=== PATIENT | male | born 1950 | race Caucasian/White ===

== ENCOUNTER 2016-06-26 07:52 | Inpatient (IN) | payer MEDICARE ==
--- NOTE | 2016-06-23 09:04 | HP ---
DATE OF CLINIC: 06/21/2016 WALLACE BAILON : 1950 PLANNED PROCEDURE: Revision of Patella s/p Right Total Knee Arthroplasty DATE OF PROCEDURE: June 26, 2016 SURGEON: Suresh Varghese M.D. PCP: Dr. Raimundo Red HISTORY OF PRESENT ILLNESS Wallace Bailon is a 65 year old male. * Medication list reviewed with patient allergy list reviewed with patient. * Has not tried NSAIDS * Has not tried Physical Therapy * Has not tried Injections Mr. Bailon is in today with his pre-operatively for his upcoming right knee patellar resurfacing and poly exchange on 06/26/16. Patient presents in good spirits and is ready to proceed. He states he's had recent sinus congestion without a fever or other constitutional symptoms. No other change in health. No prior surgical complications. His recent consult with Dr. Varghese follows: Patient is a 65-year-old male who I followed for bilateral anterior knee pain, right worse than left. He is a previous patient of Dr. Castillo about 5 years s/p total knee arthroplasties. He has struggled with persistent anterior pain that is worse with descending stairs, loaded flexion, etc. He has no rest pain, no radicular symptoms. He has recently had some problems with the right hip for which he saw Scott. He has moderate degenerative disease. He has had a recent intraarticular corticosteroid injection by Dr. Bowers about 8 weeks ago. Today he would like to review potential treatment algorithms with respect to his chronic anterior right knee pain. He has no recent illnesses. Comorbidities include hypertension. CURRENT MEDICATION * Adult Aspirin EC Low Strength 81 MG Tablet Delayed Release 1 once a day 0 days, 0 refills * AmLODIPine Besylate 10 MG Tablet once a day 0 days, 0 refills * Enalapril-Hydrochlorothiazide 10-25 MG Tablet once a day 0 days, 0 refills * Multi-Vitamin Tablet once a day 0 days, 0 refills * Pravastatin Sodium 40 MG Tablet once a day 0 days, 0 refills * Tums 500 MG Tablet Chewable as needed 0 days, 0 refills * Zetia 10 MG Tablet once a day 0 days, 0 refills PAST MEDICAL/SURGICAL HISTORY Reported: Medical: Arthritis, cancer, Reported numbness, Reported tingling, history of Arthritis in joints, and Hypertension. Surgical / Procedural: Surgical / procedural history Lt knee sx x2 Dr. Cho Rt knee sx Dr. Cho sinus sx x2 sinus surgery 1976 or 1977?, replacement of a knee Left knee replaced 01/10/2011, Right knee replaced 04/04/2011, Hernia repair 5, 1973, and Arthroscopy knee scope [id number]. Tests: Blood pressure was high. Surgical: * Hernia repair x2 SOCIAL HISTORY Behavioral: Never smoked. Smoking status: Never smoker. REVIEW OF SYSTEMS Systemic: No fever and no recent weight change. Head: Head symptoms mild sinus congestion. Cardiovascular: No cardiovascular symptoms. Pulmonary: No pulmonary symptoms. Gastrointestinal: No gastrointestinal symptoms. Psychological: No psychological symptoms. Skin: No skin lesions and no rash. PHYSICAL FINDINGS * Vitals taken 06/21/2016 11:24 am BP-Sitting R 131/74 mmHg 100 - 120/60 - 80 BP Cuff Size Regular Pulse Rate-Sitting 68 bpm 50 - 100 Temp-Oral 97.7 F 96 - 101 Height 72 in 64 - 74 Weight 238 lbs 123 - 215 Body Mass Index 32.3 kg/m2 Body Surface Area 2.29 m2 Pain Level 0 Ears, Nose, Throat: * ENT: normal. Lungs: * Clear to auscultation. Cardiovascular: Heart Rate and Rhythm: * Normal. Abdomen: * Normal. Neurological: Motor: * Dominant Hand = Right Hand. Patient is a well-developed, well-nourished male in no acute distress, normal-appearing mood and affect. He ambulates with a heel-to-toe gait, stiff-legged at startup on the right with slightly externally rotated. His pelvis is level. Inspection of the right knee shows a benign appearing scar. No focal swelling with no significant effusion. AROM: 0-105 degrees PROM: 0-115 degrees No periarticular tenderness although he does have discomfort with patellar compression. Patella tracks laterally. He has mild pain with manipulation. Good coronal plane alignment and joint play. NT in the proximal tibia. Calf is soft and NT. Distal neurovascular exam is grossly symmetric with the contralateral side. Pulses are palpable. He has limited IR, but not particularly uncomfortable. Exam of the left knee shows a well-healed incision. No focal swelling or significant effusion AROM: 0-115 degrees PROM: 0-125 degrees. No focal periarticular tenderness. Mild pain with patellar compression. No focal jointline tenderness. Good coronal plane alignment and joint play. Patella tracks laterally. Mild pain on manipulation. Calf is soft and NT. Distal neurovascular exam is grossly symmetric with the contralateral side. Gentle rotation of the hip is non-irritable. TESTS Imaging: X-Ray Knee: A complete knee x-ray with standing views was performed -of right knee. 3 views are reviewed. These demonstrate a cruciate retaining arthroplasty in reasonable position and alignment. No evidence of progressive osteolysis, loosening or wear when compared to previous films. He has a non-resurfaced patella and his patellofemoral articulation is consistent with chondral loss. ASSESSMENT * Localized primary osteoarthritis of the right knee patellofemoral post remote R TKA without resurfacing of the patella * Post operative care total knee replacement - right - 5 years post right TKA, anterior knee pain consistent with patellofemoral irritation/arthritis PREVIOUS TESTS * Test: CBC WITH DIFF Report Date: 06/15/2016 WBC 6.8 10*3/mL MCV 85.9 fL BASOPHIL 0.9 % RBC 5.95 10*6/uL NEUTROPHILS 63.7 % MCH 28.6 pg MCHC 33.3 g/dL RDW 13.0 % PLATELET COUNT 238 10*3/mL IMM NEUT % 0.1 % IMM NEUT # 0.0 10*3/mL MONOCYTES 8.5 % EOSINOPHIL 1.9 % HCT 51.1 % HGB 17.0 g/L LYMPHOCYTE 24.9 % ANC 4.4 10*3/mL * Test: URINALYSIS Report Date: 06/15/2016 GLUCOSE NEGATIVE PH,URINE 7.0 SPEC. GRAVITY 1.015 KETONE NEGATIVE NITRITE NEGATIVE BLOOD NEGATIVE BILIRUBIN NEGATIVE APPEARANCE CLEAR PROTEIN NEGATIVE COLOR YELLOW LEUK ESTERASE NEGATIVE UROBILINOGEN NORMAL * Test: COMPREHENSIVE METABOLIC PANEL Report Date: 06/15/2016 ALT/SGPT 19 U/L ALBUMIN 4.7 g/dL ALB/GLOB RATIO 1.9 BUN 18 mg/dL BUN/CREAT RATIO 16 CALCIUM 9.8 mg/dL GLUCOSE 103 mg/dL High CREATININE 1.1 mg/dL SODIUM 140 meq/L POTASSIUM 4.1 meq/L CHLORIDE 101 meq/L CARBON DIOXIDE 32 meq/L High ANION GAP 11 meq/L TOT PROTEIN 7.2 g/dL GLOBULIN 2.5 g/dL BILI,TOTAL 1.0 mg/dL AST/SGOT 17 U/L ALK PHOSPHATASE 57 U/L GFR 67 * Test: PROTHROMBIN TIME Report Date: 06/15/2016 PROTIME 10.2 s INR 0.97 * Test: PARTIAL THROMBOPLASTIN TIME Report Date: 06/15/2016 APTT 25.6 s * Test: MRSA SCREEN Report Date: 06/16/2016 MRSA SCREEN NEGATIVE * Test: MSSA SCREEN Report Date: 06/16/2016 MSSA SCREEN NEGATIVE FOR STAPHYLOCOCCUS AUREUS THERAPY * Patient fall risk screen negative. * Patient eligible for fall risk assessment. * Patient received fall risk assessment. PLAN * Pain in right knee Physical Therapy: [facility] * OTHER OxyCONTIN 10 MG T12A, 1 po q 12 hours-TO BE USED FOR AFTER SURGERY, 5 days, 0 refills OxyCONTIN 10 MG T12A, 1 po q 12 hours-TO BE USED FOR AFTER SURGERY, 10 days, 0 refills TraMADol HCl 50 MG TABS, 1 po q 6 hours prn pain-TO BE USED FOR AFTER SURGERY, 5 days, 0 refills OxyCODONE HCl 5 MG TABS, 1-2 po q 4 hours for break thru pain if needed-TO BE USED FOR AFTER SURGERY, 5 days, 0 refills Revision of patella s/p Right total knee arthroplasty. Discussed with patient in detail the limitations, expectations as well as risks and possible complications of surgery including, but not limited to wound problems or infection, neurovascular injury, continued knee pain or dysfunction including the possibility of prosthetic wear or failure over time that may require additional operative or non-operative treatment. Patient also realizes the perioperative risks including risks associated with anesthesia and would like to proceed. A full PAR conference was held, questions and concerns addressed and informed consent was obtained. Patient will be sent from my office for completion of the preoperative workup. CARE TEAM Raimundo Red MD Family Practice CC: Raimundo Red MD Family Practice [facility] RS/sg
[2016-06-26] MEDS ORDERED: LACTATED RINGERS 1,000 ML ONE ×2 (10:43→13:42)
[2016-06-26] MEDS ORDERED: IV START KIT ONE (10:44)
[2016-06-26] MEDS ORDERED: TRAMADOL HCL 50 MG TABLET ONE (11:15)
[2016-06-26] MEDS ORDERED: OXYCODONE HCL 10 MG TAB.SR PO ONE ×2 (11:15)
[2016-06-26] MEDS ORDERED: FAMOTIDINE 20 MG TABLET ONE (11:15)
[2016-06-26] MEDS ORDERED: GABAPENTIN 600 MG TABLET PO ONE (11:15)
[2016-06-26] MEDS ORDERED: CEFAZOLIN SODIUM 2 GRAM PREMIX 100 ML IV ONE (11:15)
[2016-06-26] MEDS ORDERED: FAMOTIDINE 20 MG TABLET PO ONE (11:15)
[2016-06-26] MEDS ORDERED: TRAMADOL HCL 50 MG TABLET PO ONE (11:15)
[2016-06-26] MEDS ORDERED: ONDANSETRON 4 MG/2ML 2 ML VIAL IV ONE (11:15)
[2016-06-26] MEDS ORDERED: CELECOXIB 200 MG CAPSULE PO ONE (11:15)
[2016-06-26] MEDS ORDERED: CLONIDINE HCL 0.1 MG/24 HR (7 DAY PATCH) TD SCH (11:15)
[2016-06-26] MEDS ORDERED: CEFAZOLIN SODIUM 2 GRAM PREMIX 100 ML IV PRN (11:15)
[2016-06-26] MEDS ORDERED: ONDANSETRON 4 MG/2ML 2 ML VIAL ONE (11:15)
[2016-06-26] MEDS ORDERED: GABAPENTIN 600 MG TABLET ONE (11:16)
[2016-06-26] MEDS ORDERED: CLONIDINE HCL 0.1 MG/24 HR (7 DAY PATCH) TD ONE (11:16)
[2016-06-26] MEDS ORDERED: CELECOXIB 200 MG CAPSULE ONE (11:16)
[2016-06-26] MEDS ORDERED: FENTANYL 250 MCG/5 ML AMP ONE (12:18)
[2016-06-26] MEDS ORDERED: MIDAZOLAM HCL 5 MG/5 ML VIAL ONE (12:19)
[2016-06-26] MEDS ORDERED: ROPIVACAINE 0.2% 20 ML VIAL ONE (12:28)
[2016-06-26] MEDS ORDERED: SPINAL PROCEDURAL TRAY 1 EACH ONE (12:28)
[2016-06-26] MEDS ORDERED: NERVE BLOCK PROCEDURAL TRAY 1 EACH ONE (12:28)
[2016-06-26] MEDS ORDERED: BUPIVACAINE 0.25% (MDV) 20 ML in SODIUM CHLORIDE 0.9% FLUSH 20 ML IF PRN (13:00)
[2016-06-26] MEDS ORDERED: TRANEXAMIC ACID 1,000 MG in SODIUM CHLORIDE 0.9% 100 ML IV PRN (13:00)
[2016-06-26] MEDS ORDERED: POLYMYXIN B SULFATE 500,000 UNITS, BACITRACIN 25,000 UNITS in SODIUM CHLORIDE 3 L IRRIG... IR PRN (13:00)
[2016-06-26] MEDS ORDERED: BUPIVACAINE 0.25% (MDV) 24 ML, MORPHINE SULFATE 8 MG, EPINEPHRINE 0.3 MG in SODIUM CHLO... IF PRN (13:00)
[2016-06-26] MEDS ORDERED: LIDOCAINE 2% (PRES FREE) 5 ML VIAL ONE (14:45)
[2016-06-26] MEDS ORDERED: PROPOFOL 40 ML IV ONE (14:45)
[2016-06-26] MEDS ORDERED: DEXAMETHASONE SOD PHOS 4 MG/1 ML VIAL ONE (14:45)
[2016-06-26] MEDS ORDERED: PROMETHAZINE HCL 25 MG/ML VIAL IM PRN (14:54)
[2016-06-26] MEDS ORDERED: ONDANSETRON 4 MG/2ML 2 ML VIAL IV PRN ×2 (14:54→17:52)
[2016-06-26] MEDS ORDERED: NALOXONE HCL 0.4 MG/ML VIAL IV PRN (14:54)
[2016-06-26] MEDS ORDERED: ON-Q PUMP/ROPIVACAINE 0.2% 450 ML in PREMIX BAG 1 EACH NB PRN ×2 (14:54→17:52)
[2016-06-26] MEDS ORDERED: ATROPINE SULFATE 0.4 MG/1 ML VIAL IV PRN (14:54)
[2016-06-26] MEDS ORDERED: FENTANYL 100 MCG/2 ML VIAL IV PRN (14:54)
[2016-06-26] MEDS ORDERED: HYDROMORPHONE HCL 1 MG/ML SYRINGE IV PRN (14:54)
[2016-06-26] MEDS ORDERED: LACTATED RINGERS 1,000 ML IV SCH (15:00)
[2016-06-26] MEDS ORDERED: PROPOFOL 20 ML IV ONE ×2 (15:21)
[2016-06-26] MEDS ORDERED: ON-Q PUMP/ROPIVACAINE 0.2% 450 ML ONE (16:49)
--- NOTE | 2016-06-26 17:16 | PCMBPN ---
Brief Post Op Note: Date of Procedure: 06/26/16 Preoperative Diagnosis: painful right TKA with PF DJD Postoperative Diagnosis: 1. [Same] Procedure: Revision arthroplasty right patella and polyethylene exchange Surgeon: Suresh Varghese MD Assist:Ivone (TUSHAR) Anesthesia: spinal/add block (Diane) Findings: patellar DJD Condition: stable to PAR Complications: none IV Fluids: 1200 mLs of LR Urine Output: 125 mLs Estimated Blood Loss: 30 mLs Tourniquet Time: 60 Specimens: [N/A] Implants: legion Drains: none
--- NOTE | 2016-06-26 17:41 | RAD ---
Exam: Two-view right knee COMPARISON: 03/22/2016, 10/06/2015 INDICATION: Postop. FINDINGS: AP and lateral views of the right knee were obtained. Skin azam are present medially. There has been interval placement of the patellar component. Postsurgical changes of right knee arthroplasty are otherwise similar. No pericomponent fracture is identified. Alignment is normal. No pericomponent lucency is visualized. IMPRESSION: Expected postoperative appearance following placement of the patellar component of the right knee arthroplasty.
[2016-06-26] MEDS ORDERED: HYDROMORPHONE HCL 0.5 MG/0.5 ML SYRINGE IV PRN (17:52)
[2016-06-26] MEDS ORDERED: CALCIUM CARBONATE 500 MG TAB.CHEW PO PRN (17:52)
[2016-06-26] MEDS ORDERED: TEMAZEPAM 15 MG CAPSULE PO PRN (17:52)
[2016-06-26] MEDS ORDERED: KETOROLAC TROMETHAMINE 30 MG/ML 1 ML VIAL IV PRN (17:52)
[2016-06-26] MEDS ORDERED: PUMP TUBING ONE (18:16)
[2016-06-26] MEDS: D5 1/2NS with 20 mEq KCL 1,000 ML IV SCH (18:30)
[2016-06-26 18:44] VITALS: BMI 31.8
[2016-06-26] MEDS ORDERED: PRAVASTATIN SODIUM 20 MG TABLET PO SCH (20:00)
[2016-06-26] MEDS ORDERED: ENALAPRIL MALEATE 10 MG TABLET PO SCH ×2 (20:00→20:52)
[2016-06-26] MEDS ORDERED: HYDROCHLOROTHIAZIDE 25 MG TABLET PO SCH (20:00)
[2016-06-26] MEDS ORDERED: AMLODIPINE BESYLATE 5 MG TABLET PO SCH (20:00)
[2016-06-26] MEDS ORDERED: PRAVASTATIN SODIUM 40 MG TABLET PO SCH (20:00)
[2016-06-26] MEDS ORDERED: EZETIMIBE 10 MG TABLET PO SCH (20:00)
[2016-06-26] MEDS: ACETAMINOPHEN 500 MG TABLET PO SCH (20:54)
[2016-06-26] MEDS: DOCUSATE SODIUM 100 MG CAPSULE PO SCH (20:55)
[2016-06-26] MEDS: ASCORBIC ACID 500 MG TABLET PO SCH (20:55)
[2016-06-26] MEDS: CEFAZOLIN SODIUM 1 GRAM PREMIX 1 G in Premix (D5W) 50 ml 1 EACH IV SCH (23:12)
[2016-06-27] MEDS ORDERED: TRAMADOL HCL 50 MG TABLET PO PRN
[2016-06-27] MEDS: D5 1/2NS with 20 mEq KCL 1,000 ML IV SCH ×2 (01:13→07:24)
[2016-06-27] MEDS: ACETAMINOPHEN 500 MG TABLET PO SCH ×3 (01:53→13:38)
[2016-06-27] MEDS: OXYCODONE HCL 5 MG TABLET PO PRN ×2 (01:54→07:34)
[2016-06-27 06:17] LABS: HEMATOCRIT 41.7 % (32.0-52.0); HEMOGLOBIN 13.8 gm/l (14.0-18.0); MEAN CELL VOLUME 86.2 fl (80.0-94.0); MEAN CORPUSCULAR HEMOGLOBIN 28.5 pg (27.0-31.0); MEAN CORPUSCULAR HGB CONC 33.1 g/dl (33.0-37.0); RED CELL DISTRIBUTION WIDTH 12.5 % (11.5-14.5)
[2016-06-27 06:39] LABS: CALCIUM 8.3 mg/dL (8.6-10.3)
[2016-06-27] MEDS: CEFAZOLIN SODIUM 1 GRAM PREMIX 1 G in Premix (D5W) 50 ml 1 EACH IV SCH (06:54)
[2016-06-27] MEDS: DOCUSATE SODIUM 100 MG CAPSULE PO SCH (08:21)
[2016-06-27] MEDS: ASCORBIC ACID 500 MG TABLET PO SCH (08:21)
[2016-06-27] MEDS ORDERED: CELECOXIB 200 MG CAPSULE PO SCH (09:00)
[2016-06-27] MEDS ORDERED: MULTIVITAMINS 1 TAB TABLET PO SCH (09:00)
[2016-06-27] MEDS ORDERED: ASPIRIN (ENTERIC COATED) 325 MG TABLET.EC PO SCH (09:00)
--- NOTE | 2016-06-27 09:39 | CONS ---
Wallace Turner [id number] DATE OF ADMISSION: 06/26/2016 DATE OF CONSULTATION: 06/26/2016 PHYSICIAN REQUESTING CONSULTATION: Dr. Varghese REASON FOR THE CONSULTATION: Assistance in the perioperative management of the patient's medical problems. These medical problems include chronic essential hypertension and hypercholesterolemia. PROCEDURE PERFORMED DURING THE HOSPITALIZATION: Include a revision arthroplasty of the right patella with a polyethylene exchange which was performed with a spinal with adductor block earlier today without complications. ADMISSION AND HOSPITAL COURSE: The patient is a 65-year-old male who has had persistent right knee pain status post right total knee arthroplasty in March 2011 admitted for an elective revision patellar arthroplasty and polyethylene exchange as mentioned above. REVIEW OF SYSTEMS: He has had no recent problems with fevers, chills, weakness, or fatigue. No upper respiratory symptoms, cough, dyspnea, chest pain, weakness, edema, or palpitations. No nausea, vomiting, abdominal pain, diarrhea, or constipation. No headaches, fainting, blackouts, or seizures. No urinary complaints. Review of systems is otherwise negative. PAST MEDICAL HISTORY: Significant for chronic essential hypertension and hyperlipidemia, as well as osteoarthritis. He had a preoperative cardiac evaluation back in 2010 which was negative. He has had no recent hospitalizations. PAST SURGICAL HISTORY: Significant for surgery as mentioned above today. He also had a right total knee arthroplasty in March 2011, left total arthroplasty in December 2010. He has had multiple colonoscopies. He had a tonsillectomy as a child. He has had two previous sinus surgeries and two previous hernia repairs. ALLERGIES: No known drug allergies. CURRENT MEDICATIONS: Consist of: 1. Pravachol 40 mg every evening. 2. Zetia 10 mg every evening. 3. Vaseretic 10/25 mg one every evening. 4. Enteric coated aspirin 81 mg every evening. 5. Norvasc 5 mg every evening. FAMILY HISTORY: Significant for a brother who had an myocardial infarction at the age of 38. His father had an myocardial infarction at the age of 44. SOCIAL HISTORY: He is retired. He lives at home with his . His daughter is a nurse. He is a nonsmoker. He never used tobacco. He occasionally drinks alcohol socially. Denies any illicit drug use. His primary care provider is Dr. Raimundo Red. PHYSICAL EXAMNATION: VITAL SIGNS: Current shows a temperature of 98.0, pulse 50, blood pressure 124/76, respirations 20, oxygen saturation 95% on room air. Body mass index is 31.8, weight is 106.5 kg. GENERAL: This is a slightly obese male in no acute distress. HEENT: Unremarkable. LUNGS: Clear to auscultation bilaterally. CARDIOVASCULAR: Reveals a regular rate and rhythm without a murmur. ABDOMEN: Obese, soft, nontender, nondistended with positive bowel sounds. PELVIC: Deferred. RECTAL: Deferred. EXTREMITIES: Show a surgical dressing over the right knee. He has no peripheral edema. Capillary refill is less than 2 seconds in both feet. PREOPERATIVE EVALUATION: I do not have any prior EKG's for review. He did have blood work done on June 15 showing a CBC with a normal white count of 6.8, hemoglobin of 17, and a platelet count of 238,000. Coagulation profile was unremarkable on that day. Chemistry profile shows normal electrolytes, creatinine of 1.1. Normal liver functions tests. Urinalysis was unremarkable. ASSESSMENT: The patient's chronic essential hypertension and hypercholesterolemia he can take his cholesterol medications without any revision. I would hold his Norvasc for systolic blood pressure under 150 and hold his Vaseretic for systolic blood pressure under 130. The hospitalist service will follow the patient in the perioperative period. He will be discharged to the care of his primary care provider after he leaves the hospital. Venous thromboembolism risk is moderate and mechanical measures are being used for prophylaxis along with aspirin daily. JOB: [id number] CC: Dr. Suresh Red
[2016-06-27] MEDS ORDERED: REMOVE PATCH 1 EACH UNIT TD SCH (11:15)
--- NOTE | 2016-06-27 11:28 | PDOC43 ---
- Subjective Findings: Pt seen this morning sitting at the edge of the bed working with PT. He reports doing well with little pain. He wishes to go home today. Subjective: Reports Flatus, Reports Pain Tolerable, Denies Chest Pain, Denies Shortness of Breath, Denies Nausea, Denies Vomiting, Denies Fever - Objective Vital Signs Temperature 98.8 F 06/27/16 07:18 Pulse Rate 52 06/27/16 07:18 Respiratory Rate 18 06/27/16 07:18 Blood Pressure 126/71 06/27/16 07:18 O2 Saturation by Pulse Oximetry 96 06/27/16 07:18 Oxygen Delivery Method Room Air Oxygen Flow Rate 0 Laboratory 06/27/16 05:30 06/27/16 05:30 06/27/16 05:30 Calcium 8.3 L Active Medication Orders Category Date Time Status Acetaminophen [Tylenol] Med 06/26/16 19:30 Active 1,000 mg PO Q6H Amlodipine Besylate [Norvasc] Med 06/26/16 20:00 Active 5 mg PO QPM Ascorbic Acid [Vitamin C] Med 06/26/16 21:00 Active 500 mg PO BID Aspirin (Enteric Coated) [Ecotrin] Med 06/27/16 09:00 Active 325 mg PO DAILY Bisacodyl [Dulcolax] Med 06/29/16 16:59 Active 10 mg GA DAILY PRN Calcium Carbonate [Tums] Med 06/26/16 17:52 Active 1,000 - 2,000 mg PO Q2H PRN Celecoxib [Celebrex] Med 06/27/16 09:00 Active 200 mg PO DAILY D5 1/2NS with 20 mEq KCL [D51/2NS with 20 mEq KCL] 1, Med 06/26/16 17:52 Active 000 ml IV 150 mls/hr Docusate Sodium [Colace] Med 06/26/16 21:00 Active 100 mg PO BID Enalapril Maleate [Vasotec] Med 06/26/16 20:52 Active 10 mg PO QPM Ezetimibe [Zetia] Med 06/26/16 20:00 Active 10 mg PO QPM Hydrochlorothiazide Med 06/26/16 20:00 Active 25 mg PO QPM Hydromorphone HCl [Dilaudid] Med 06/26/16 17:52 Active 0.5 mg IV Q1H PRN Ketorolac Tromethamine [Toradol] Med 06/26/16 17:52 Active 30 mg IV Q6H PRN Magnesium Hydroxide [Milk of Magnesia] Med 06/27/16 16:59 Active 30 ml PO DAILY PRN Multivitamins [One-A-Day] Med 06/27/16 09:00 Active 1 tab PO DAILY On-Q Pump/Ropivacaine 0.2% 450 ml Med 06/26/16 17:52 Active Premix Bag [Premix Fluid] 1 each NB Q50H Ondansetron 4 mg/2ml Vial [Zofran] Med 06/26/16 17:52 Active 4 - 6 mg IV Q6H PRN Oxycodone HCl [Roxicodone] Med 06/26/16 17:52 Active 5 - 10 mg PO Q4H PRN Pravastatin Sodium [Pravachol] Med 06/26/16 20:00 Active 40 mg PO QPM Remove Patch Med 06/27/16 16:59 Once 1 each TD X1 ONE Sodium Chloride 0.9% Flush [Normal Saline 10ml Flush] Med 06/26/16 17:52 Active 10 - 50 ml IV PRN PRN Sodium Chloride 0.9% Flush [Normal Saline 10ml Flush] Med 06/27/16 01:00 Active 10 ml IV Q8HR Temazepam [Restoril] Med 06/26/16 17:52 Active 15 mg PO BEDTIME PRN Tramadol HCl [Ultram] Med 06/27/16 00:00 Active 50 mg PO Q6H PRN Intake and Output 06/25/16 06/26/16 06/27/16 23:59 23:59 23:59 Intake Total 1700 2069 Output Total 230 1200 Balance 1470 869 General: Afebrile HEENT: Atraumatic Lungs: Normal Air Movement Skin: Normal Color Neurological: Alert, Oriented x 4 Psych/Mental Status: Normal Affect - Right Lower Extremity Incision: Dressing Clean/Dry/Intact Motor: Extensor Hallucis Longus: 5/5, Tibialis Anterior: 5/5, Gastrocnemius: 5/5 , Peroneals: 5/5, Quadriceps: 3/5 - Problems (1) Status post revision of total knee replacement Status: AcuteAssessment/Plan: Pod#1 1. Physical Therapy:Mobilize with PT/OT 2. Pain Control:Per protocol. Nerve cath turned down to 6ml/hr 3. DVT Prophylaxis: ASA and mobility 4. Disposition:Doing well 5. Medical Issues:Possible DC today if meets criteria
[2016-06-27 12:29] VITALS: BP 130/78
--- NOTE | 2016-06-27 13:44 | PDOC43 ---
- Subjective Chief Complaint: knee pain Patient awake and alert, feeling well, ready to go home. He had an elective revision of a RTKA 06/26/2016. Subjective: Reports Pain Tolerable, Reports Tolerating Diet Well, Reports Adequate Oral Intake, Reports Bowel Movement, Reports Urinating Without Difficulty, Denies Shortness of Breath, Denies Cough, Denies Chest Pain, Denies Abdominal Pain, Denies Nausea, Denies Vomiting - Objective Vital Signs Temperature 98 F 06/27/16 12:00 Pulse Rate 52 06/27/16 12:00 Respiratory Rate 18 06/27/16 12:00 Blood Pressure 130/78 06/27/16 12:00 O2 Saturation by Pulse Oximetry 97 06/27/16 12:00 Oxygen Delivery Method Room Air Oxygen Flow Rate 0 Intake and Output 06/25/16 06/26/16 06/27/16 23:59 23:59 23:59 Intake Total 1700 2069 Output Total 230 1200 Balance 1470 869 General: Alert, Oriented x3, Cooperative, Other (morbidly obese), No Acute Distress HEENT: Atraumatic, PERRLA, EOMI, Mucous membr. moist/pink Lungs: Clear to Auscultation Bilaterally Cardiovascular: Regular Rate and Rhythm, Normal S1, Normal S2 Abdomen: Soft, Non-Distended, No Rigid, No Tenderness, No Rebounding Extremities: No Cyanosis, No Edema, No Tenderness Neurological: Normal Speech Psych/Mental Status: Normal Mood Laboratory 06/27/16 05:30 06/27/16 05:30 06/27/16 05:30 Calcium 8.3 L Current Medications: Current meds reviewed in EMR. - Problems: Assessment/Plan (1) Status post revision of total knee replacement Qualifiers: Laterality: right Qualifier Code: (Z96.651) Presence of right artificial knee joint Status: AcuteAssessment/Plan: post-op day 1. Doing well. Managed per ortho recommendations (2) Obesity (BMI 30.0-34.9) Status: ChronicAssessment/Plan: may complicate rehabilitation (3) Hypertension Qualifiers: Hypertension type: essential hypertension Qualifier Code: (I10) Essential (primary) hypertension Status: ChronicAssessment/Plan: stable (4) Hyperlipidemia Qualifiers: Hyperlipidemia type: mixed hyperlipidemia Qualifier Code: (E78.2) Mixed hyperlipidemia Status: ChronicAssessment/Plan: stable
[2016-06-27] MEDS ORDERED: MAGNESIUM HYDROXIDE 30 ML UDCUP PO PRN (16:59)
[2016-06-27] MEDS ORDERED: REMOVE PATCH 1 EACH UNIT TD ONE (16:59)
--- NOTE | 2016-06-28 11:03 | OP ---
ABHAY BAILON [id number] : 1950 DATE OF SURGERY: June 26, 2016 PREOPERATIVE DIAGNOSIS: Right knee pain after previous total knee arthroplasty. POSTOPERATIVE DIAGNOSIS: Patellofemoral DJD, right knee. PROCEDURE: Revision arthroplasty, right knee, with placement of patellar component and polyethylene exchange. SURGEON: Suresh Varghese M.D. IMPLEMENTATION MANAGER: Ivone HERNÁNDEZ) COMPONENTS: 38mm Vani II resurfacing patella component, 9mm Legion size 7-8 cross-linked polyethylene posterior stabilized articular insert. ESTIMATED BLOOD LOSS: Approximately 30 cc ANESTHESIA: Spinal plus adductor nerve block TOURNIQUET TIME: Approximately 60 minutes FLUIDS: IV fluid placed per anesthesia, 1.2 liters crystalloid. URINE OUTPUT: 125 cc DRAINS: None COMPLICATIONS: None INDICATIONS: Patient is a 65-year-old male who had a total knee arthroplasty done by Dr. Castillo several years ago. He has had persisting, progressive anterior knee pain. Clinical evaluation and radiographs are consistent with progression of patellofemoral degenerative disease. He has a non-resurfaced patella. He has failed to improve with traditional nonoperative treatment and desires elective revision arthroplasty. PAR conference was held, questions and concerns addressed and informed consent obtained. For additional details please refer to dictated preoperative H&P. PROCEDURAL DESCRIPTION: Patient was taken to the OR after placement of a spinal anesthetic and adductor nerve block with catheter. He was placed supine on the OR table. Tourniquet was applied to the proximal leg and the lower extremity was prepped and draped out in the usual sterile fashion. Preoperative IV antibiotics were given empirically. Intraoperative DVT prophylaxis consisted of contralateral foot pumps. Personal infiltration suits were used as was a closed room environment. After sterile prep and drape the leg was elevated and the tourniquet was inflated. The previous curving anteromedial incision was utilized. We dissected through subcutaneous tissue using cautery at this point and throughout the duration of the case to establish and maintain hemostasis. At the incision 1 gram of Tranexamic acid was given per protocol. An additional 1 gram was given at closure. A medial arthrotomy was performed. I used a mid-vastus approach. A medial subperiosteal proximal tibial release was done as well. There was a large amount of anterior fibrosis that was debrided under direct visualization. The anterior fat pad was fibrotic and this was debrided as well. Once exposure had been obtained, I was able to semi coreen the patella. There was full thickness chondral loss throughout the entire median ridge extending over the lateral facet. Femoral component was intact with no areas of abnormality. I did subluxate the tibia anteriorly. Polyethylene component was in reasonable shape. I did make the decision to do a polyethylene exchange, given the fact that his primary procedure was approximately 5 years ago. This was removed with a quarter inch osteotome. The tibial component was intact. Attention was directed back to the patella. I debrided this circumferentially using cautery. We then removed marginal osteophytes, placed the Harmony patellar reamer removing 9mm of bone. We sized the patella as a 38, drilled the appropriate patellar lugs. I then copiously irrigated with pulsatile lavage, cleaned and dried the cancellous interstices. A single batch of antibiotic impregnated polymethylmethacrylate was used to cement the patellar component. Position was held until cement cured. All residual methyl methacrylate was meticulously removed. Periarticular injection was placed primarily posteromedially in the capsule with some extension posterolaterally and into the suprapatellar pouch. We then placed the new posterior stabilized articular insert. He had full extension, good coronal plane stability, excellent rollback and good patellar tracking. Satisfied, we turned our attention towards closure. We copiously irrigated with pulsatile lavage. The retinaculum was re-approximated with a running #2 Quill. Subcutaneous tissue was closed with interrupted 2-0 and 3-0 Vicryl and the skin with surgical clips. The 2nd periarticular injection was placed per protocol. This was primarily anteromedial at the proximal tibia as well as laterally at the IT band and at the condyle. An Aquacel dressing was applied. The patient was transferred to his hospital bed and sent to post anesthesia recovery in stable condition. He tolerated this well. Sponge, instrument and needle counts were correct. HITESH/mrw CC: Derek Red MD [facility]
--- NOTE | 2016-06-28 11:04 | DS ---
Wallace BAILON [id number] : 1950 DATE OF ADMISSION: June 26, 2016 DATE OF DISCHARGE: June 27, 2016 DISCHARGE DIAGNOSES: Right knee patellofemoral pain status post arthroplasty. HOSPITAL PROCEDURES: Right knee arthroplasty with revision of patella. SURGEON: Suresh Varghese M.D. 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 For the full history please see the chart note. BRIEF HOSPITAL COURSE: Patient was admitted on AAA. Dr. Suresh Varghese performed a right knee arthroplasty with revision of patella. They were moved to the recovery room in stable condition. They were given 4 doses of antibiotic for empiric coverage. DVT prophylaxis consisted of tear coated aspirin, MARLON hose and AV foot pumps. PT was instituted postop day 0 with right total knee arthroplasty protocol, weightbearing as tolerated. Their incision site remained benign, their vital signs remained stable and they remained neurally and vascularly intact through the duration of the stay. They were discharged home on postop day 1 to continue their outpatient PT at [facility] with right total knee arthroplasty protocol, weightbearing as tolerated. The patient was consulted by hospitalist Dr. Lane Davey and Dr. Rudy Duran for management of comorbidities while in the hospital. DISCHARGE INSTRUCTIONS: 1. Keep the wound site clean. May shower with Aquacel dressing intact. Call office with any questions or concerns and f/u for your dressing change as scheduled 1 week postop. 2. Continue the use of MARLON hose bilaterally. 3. Cooling unit 3-4 times daily for 30 minutes duration. 4. Outpatient PT at [facility] for right total knee arthroplasty protocol, weightbearing as tolerated. MEDICATIONS: 1. Patient is to resume normal preop medications. 2. Anti-coagulation will be with enteric-coated aspirin 325 mg one by mouth every day for six weeks. 3. Pain management will be with, Oxycodone, 5mg 1-2 every 4 hours prn for breakthrough pain, and Tramadol, 50mg every 6 hours prn pain, Celebrex 200 mg one by mouth every day for two weeks. 4. Patient was also advised on utilization of a multi-vitamin with mineral daily as well as Vitamin C, 500mg daily for 1 month. 5. Patient encouraged to take an iron supplement in the form of ferrous sulfate, 325mg daily for 4 weeks. 6. Colace, 100mg, b.i.d. until regular bowel movement. FOLLOW-UP: Please return to the clinic as scheduled for your first scheduled postop check. Prior to that point in time please call with any questions or concerns. Job [id number] CC: Derek Red M.D.
[2016-06-29] MEDS ORDERED: BISACODYL 10 MG SUP PR PRN (16:59)
== END 2016-06-27 17:30 | disposition home or self-care (01) | DRG 465 ==
LOC: OR 11:02 → MS 17:41
PROVIDERS: ADMIT Orthopaedic Surgery; ATTEND Orthopaedic Surgery
PROC: 0SPC09Z Removal of Liner from Right Knee Joint, Open Approach (ICD-10-PCS; principal; 2016-06-26)
PROC: 0SUC09C Supplement Right Knee Joint with Liner, Patellar Surface, Open Approach (ICD-10-PCS; 2016-06-26)
DX: M17.0 Bilateral primary osteoarthritis of knee (principal); E66.9 Obesity, unspecified; I10 Essential (primary) hypertension; E78.5 Hyperlipidemia, unspecified; E78.00 Pure hypercholesterolemia, unspecified